=== PATIENT | female | born 1955 | race Caucasian/White ===

== ENCOUNTER → 2017-05-11 | Outpatient (CLI) | payer BC ==
--- NOTE | 2017-05-11 11:06 | XR ---
Left foot HISTORY: Pain and swelling, trauma 3 views of the left foot There is a plantar calcaneal spur. Bone mineralization, joint spaces and alignment are maintained. De generative change is present at the first metatarsophalangeal joint. impression: No acute fracture or dislocation is evident
== END | disposition home or self-care (01) ==
LOC: RADXRYALE 10:16
PROVIDERS: ATTEND Internal Medicine
DX: M79.672 Pain in left foot (principal)

== ENCOUNTER → 2019-05-12 | Outpatient (CLI) | payer BC ==
--- NOTE | 2019-05-12 13:36 | XR ---
EXAMINATION TYPE: XR knee limited bilateral DATE OF EXAM: 05/12/2019 CLINICAL HISTORY: Bilateral knee pain TECHNIQUE: Frontal and lateral views of the bilateral knees were obtained. COMPARISON: None. FINDINGS: There is no acute fracture/dislocation evident in either knee. There is very minimal media l compartment joint space narrowing bilaterally with very small tricompartmental osteophytes. No siza ble suprapatellar joint effusion of either knee The tri-compartment joint spaces appear aligned. The overlying soft tissue appears unremarkable. IMPRESSION: There is no acute fracture or dislocation in either knee. Mild tricompartmental arthrosi s.
== END | disposition home or self-care (01) ==
LOC: RADXRYALE 12:59
PROVIDERS: ATTEND Internal Medicine
DX: M17.0 Bilateral primary osteoarthritis of knee (principal)

== ENCOUNTER 2020-06-21 14:42 | Emergency (ER) | payer BC ==
[2020-06-21] MEDS ORDERED: ONDANSETRON 4 MG/2 ML VIAL IVP STA (15:31)
[2020-06-21] MEDS ORDERED: SODIUM CHLORIDE 0.9% 1,000 ML IV STA (15:31)
--- NOTE | 2020-06-21 15:43 | ED ---
General Adult HPI - General Chief complaint: Abdominal Pain Stated complaint: NVD Time Seen by Provider: 06/21/20 15:10 Source: patient Mode of arrival: ambulatory Limitations: no limitations - History of Present Illness Initial comments: Patient is a 64-year-old female past nuchal history of asthma, coronary artery disease, COPD presents emergency department with 2 days' worth of nausea, vomiting diarrhea. States that her symptoms started after she ate some pizza at her daughter's house. Denies any sick contacts with similar symptoms. She has been able to drink water however, she cannot hold down any food. Admits to chills without any recorded fevers as her thermometer is broken. Admits epigastric abdominal pain. No chest pain or shortness of breath. Denies cough. Did not take any medications for her symptoms. Decreased frequency of urination. Denies dysuria, hematuria or difficulty voiding. Denies diarrhea, constipation, melenic stools or hematochezia. - Related Data Home Medications Medication Instructions Recorded Confirmed ALPRAZolam [Xanax] 1 mg PO BID PRN 06/21/20 06/21/20 Albuterol Sulfate [Ventolin HFA] 2 puff INHALATION RT-Q6H PRN 06/21/20 06/21/20 Atorvastatin [Lipitor] 40 mg PO DAILY 06/21/20 06/21/20 Budesonide/Formoterol Fumarate 2 puff INHALATION RT-BID PRN 06/21/20 06/21/20 [Symbicort 160-4.5 Mcg Inhaler] Cyclobenzaprine [Flexeril] 10 mg PO TID PRN 06/21/20 06/21/20 Diltiazem HCl [Diltiazem HCl 24Hr 180 mg PO BID 06/21/20 06/21/20 ER (CD)] Lisinopril-Hctz 10-12.5 mg 1 tab PO DAILY 06/21/20 06/21/20 [Zestoretic 10-12.5] Omeprazole 20 mg PO DAILY PRN 06/21/20 06/21/20 Previous Rx's Medication Instructions Recorded Metoclopramide [Reglan] 10 mg PO TID PRN #15 tab 06/21/20 Allergies Allergy/AdvReac Type Severity Reaction Status Date / Time codeine Allergy Nausea & Verified 06/21/20 16:03 Vomiting Review of Systems ROS Statement: Those systems with pertinent positive or pertinent negative responses have been documented in the HPI. ROS Other: All systems not noted in ROS Statement are negative. Past Medical History Past Medical History: Asthma, Coronary Artery Disease (CAD), COPD History of Any Multi-Drug Resistant Organisms: None Reported Past Surgical History: Heart Catheterization, Hysterectomy Past Psychological History: No Psychological Hx Reported Smoking Status: Never smoker Past Alcohol Use History: None Reported Past Drug Use History: Marijuana General Exam Limitations: no limitations Course Vital Signs 06/21/20 06/21/20 15:09 18:12 Temperature 100.3 F H 98.3 F Pulse Rate 71 69 Respiratory 20 16 Rate Blood Pressure 166/76 134/67 O2 Sat by Pulse 96 97 Oximetry EKG Findings - EKG Comments: EKG Findings:: EKG demonstrates a normal sinus rhythm with a ventricular rate of 62. WA interval 148. QRS 100. QTC of 472. There is an incomplete right bundle branch block. No acute ST segment elevations or depressions Medical Decision Making - Medical Decision Making Upon arrival the patient is placed into room 18. A thorough history and physical exam was performed. Patient is placed on continuous pulse ox and cardiac monitoring. PIV is established. 12-lead EKG was performed. Laboratory studies were conducted. White count mildly elevated at 12.5. Urinalysis shows 1+ ketones with small blood and 17 red blood cells. Because of the patient's reported abdominal pain CT was performed which demonstrates no acute abdominal pelvic findings. Indeterminant right and left adrenal nodules. Nonobstructing once a meter right renal nephrolithiasis. The patient was given a dose of Zofran without improvement in her symptoms. She was also given a l iter bolus of normal saline. Upon reevaluation the patient continues to remain nauseated and therefore was given a dose of Benadryl and Reglan. Patient remained to the emergency room for 4 hours. She is evaluated and states she feels much improved at this time. Patient would like to go home. She will be given a Zofran starter pack and I will write the patient prescription for Reglan which would pharmacy. She is instructed to use one or the other for her nausea. Patient is swabbed for Covid and is instructed to quarantine until her symptoms improve and her results come back negative. Patient understood this. She has any new or worsening symptoms she should return to the emergency room. Questions were after the patient was discharged home in stable condition - Lab Data Result diagrams: 06/21/20 15:59 06/21/20 15:59 Lab Results 06/21/20 06/21/20 06/21/20 Range/Units 15:59 15:59 15:59 WBC 12.5 H (3.8-10.6) k/uL RBC 5.05 (3.80-5.40) m/uL Hgb 15.3 (11.4-16.0) gm/dL Hct 45.4 (34.0-46.0) % MCV 89.8 (80.0-100.0) fL MCH 30.3 (25.0-35.0) pg MCHC 33.7 (31.0-37.0) g/dL RDW 14.0 (11.5-15.5) % Plt Count 398 (150-450) k/uL Neutrophils % 72 % Lymphocytes % 21 % Monocytes % 5 % Eosinophils % 1 % Basophils % 1 % Neutrophils # 9.0 H (1.3-7.7) k/uL Lymphocytes # 2.7 (1.0-4.8) k/uL Monocytes # 0.6 (0-1.0) k/uL Eosinophils # 0.1 (0-0.7) k/uL Basophils # 0.1 (0-0.2) k/uL PT 10.1 (9.0-12.0) sec INR 1.0 (<1.2) APTT 24.6 (22.0-30.0) sec Sodium 139 (137-145) mmol/L Potassium 3.8 (3.5-5.1) mmol/L Chloride 109 H (98-107) mmol/L Carbon Dioxide 20 L (22-30) mmol/L Anion Gap 10 mmol/L BUN 12 (7-17) mg/dL Creatinine 0.58 (0.52-1.04) mg/dL Est GFR (CKD-EPI)AfAm >90 (>60 ml/min/1.73 sqM) Est GFR (CKD-EPI)NonAf >90 (>60 ml/min/1.73 sqM) Glucose 112 H (74-99) mg/dL Plasma Lactic Acid [place] (0.7-2.0) mmol/L Calcium 9.8 (8.4-10.2) mg/dL Total Bilirubin 0.8 (0.2-1.3) mg/dL AST 24 (14-36) U/L ALT 18 (4-34) U/L Alkaline Phosphatase 94 (38-126) U/L Total Protein 7.7 (6.3-8.2) g/dL Albumin 4.7 (3.5-5.0) g/dL Lipase 81 (23-300) U/L Urine Color Urine Appearance (Clear) Urine pH (5.0-8.0) Ur Specific [place] (1.001-1.035) Urine Protein (Negative) Urine Glucose (UA) (Negative) Urine Ketones (Negative) Urine Blood (Negative) Urine Nitrite (Negative) Urine Bilirubin (Negative) Urine Urobilinogen (<2.0) mg/dL Ur Leukocyte Esterase (Negative) Urine RBC (0-5) /hpf Urine WBC (0-5) /hpf Ur Squamous Epith Cells (0-4) /hpf Hyaline Casts (0-2) /lpf Urine Mucus (None) /hpf 06/21/20 06/21/20 Range/Units 15:59 17:15 WBC (3.8-10.6) k/uL RBC (3.80-5.40) m/uL Hgb (11.4-16.0) gm/dL Hct (34.0-46.0) % MCV (80.0-100.0) fL MCH (25.0-35.0) pg MCHC (31.0-37.0) g/dL RDW (11.5-15.5) % Plt Count (150-450) k/uL Neutrophils % % Lymphocytes % % Monocytes % % Eosinophils % % Basophils % % Neutrophils # (1.3-7.7) k/uL Lymphocytes # (1.0-4.8) k/uL Monocytes # (0-1.0) k/uL Eosinophils # (0-0.7) k/uL Basophils # (0-0.2) k/uL PT (9.0-12.0) sec INR (<1.2) APTT (22.0-30.0) sec Sodium (137-145) mmol/L Potassium (3.5-5.1) mmol/L Chloride (98-107) mmol/L Carbon Dioxide (22-30) mmol/L Anion Gap mmol/L BUN (7-17) mg/dL Creatinine (0.52-1.04) mg/dL Est GFR (CKD-EPI)AfAm (>60 ml/min/1.73 sqM) Est GFR (CKD-EPI)NonAf (>60 ml/min/1.73 sqM) Glucose (74-99) mg/dL Plasma Lactic Acid [place] 1.1 (0.7-2.0) mmol/L Calcium (8.4-10.2) mg/dL Total Bilirubin (0.2-1.3) mg/dL AST (14-36) U/L ALT (4-34) U/L Alkaline Phosphatase (38-126) U/L Total Protein (6.3-8.2) g/dL Albumin (3.5-5.0) g/dL Lipase (23-300) U/L Urine Color Light Yellow Urine Appearance Clear (Clear) Urine pH 7.5 (5.0-8.0) Ur Specific [place] >1.050 H (1.001-1.035) Urine Protein Trace H (Negative) Urine Glucose (UA) Negative (Negative) Urine Ketones 1+ H (Negative) Urine Blood Small H (Negative) Urine Nitrite Negative (Negative) Urine Bilirubin Negative (Negative) Urine Urobilinogen <2.0 (<2.0) mg/dL Ur Leukocyte Esterase Negative (Negative) Urine RBC 17 H (0-5) /hpf Urine WBC 2 (0-5) /hpf Ur Squamous Epith Cells 4 (0-4) /hpf Hyaline Casts 1 (0-2) /lpf Urine Mucus Rare H (None) /hpf Disposition Clinical Impression: Nausea and vomiting Disposition: HOME SELF-CARE Condition: Stable Instructions (If sedation given, give patient instructions): Acute Nausea and Vomiting (ED) Additional Instructions: Please follow-up with primary care doctor in 2-4 days. Take the Zofran or Reglan as needed for nausea (whichever works better for you). Return to the emergency department new or worsening symptoms Prescriptions: Metoclopramide [Reglan] 10 mg PO TID PRN #15 tab PRN Reason: Nausea Is patient prescribed a controlled substance at d/c from ED?: No Referrals: Pushpa Staples MD [Primary Care Provider] - 1-2 days Time of Disposition: 18:40
[2020-06-21 16:18] LABS: Basophils # (A) 0.1 k/uL (0-0.2); Basophils % (A) 1 %; Eosinophils # (A) 0.1 k/uL (0-0.7); Eosinophils % (A) 1 %; HCT 45.4 % (34.0-46.0); HGB 15.3 gm/dL (11.4-16.0); Lymphocytes # (A) 2.7 k/uL (1.0-4.8); Lymphocytes % (A) 21 %; MCH 30.3 pg (25.0-35.0); MCHC 33.7 g/dL (31.0-37.0); MCV 89.8 fL (80.0-100.0); Mean Platelet Volume 7.3; Monocytes # (A) 0.6 k/uL (0-1.0); Monocytes % (A) 5 %; Neutrophils % (A) 72 %; Platelet Count 398 k/uL (150-450); RBC 5.05 m/uL (3.80-5.40); WBC 12.5 k/uL (3.8-10.6)
[2020-06-21 16:25] LABS: ALT 18 U/L (4-34); AST 24 U/L (14-36); African American GFR (CKD) >90 (>60 ml/min/1.73 sqM); Albumin 4.7 g/dL (3.5-5.0); Alkaline Phosphatase 94 U/L (38-126); Anion Gap 10 mmol/L; Blood Urea Nitrogen 12 mg/dL (7-17); Calcium 9.8 mg/dL (8.4-10.2); Carbon Dioxide 20 mmol/L (22-30); Chloride 109 mmol/L (98-107); Glucose 112 mg/dL (74-99); Non-African American GFR(CKD) >90 (>60 ml/min/1.73 sqM); Potassium 3.8 mmol/L (3.5-5.1); Sodium 139 mmol/L (137-145); Total Bilirubin 0.8 mg/dL (0.2-1.3); Total Protein 7.7 g/dL (6.3-8.2)
[2020-06-21 16:26] LABS: Partial Thromboplastin Time 24.6 sec (22.0-30.0); Prothrombin Time 10.1 sec (9.0-12.0)
[2020-06-21] MEDS ORDERED: METOCLOPRAMIDE 5 MG/ML 2 ML VIAL IVP STA (16:28)
[2020-06-21] MEDS ORDERED: diphenhydrAMINE 50 MG/ML 1 ML VIAL IVP STA (16:28)
--- NOTE | 2020-06-21 16:47 | CT ---
EXAMINATION TYPE: CT abdomen pelvis w con DATE OF EXAM: 06/21/2020 COMPARISON: None HISTORY: Upper Abdominal pain with N/V and fever. CT DLP: 1186.3 mGycm Automated exposure control for dose reduction was used. TECHNIQUE: Helical acquisition of images was performed from the lung bases through the pelvis. CONTRAST: Performed without Oral Contrast and with IV Contrast, patient injected with 100 mL of Isovue 300. FINDINGS: LUNG BASES: Normal. LIVER: Normal. BILIARY SYSTEM: Normal. PANCREAS: Normal. SPLEEN: Normal. ADRENALS: Right adrenal 1.7 x 2.2 cm nodule. Left adrenal gland normal. KIDNEYS: 1.0 x 0.9 cm nonobstructing right renal lower pole calculus. Left renal 2.2 x 2.0 cm hypoden se lesion is borderline for simple fluid, with Hounsfield units of 32. No hydronephrosis or hydrouret er bilaterally. BOWEL: Small hiatal hernia. No evidence of bowel obstruction or thickening. Colonic diverticulosis. No acute diverticulitis. 2.0 cm lipoma of the cecum. PERITONEUM: No pneumoperitoneum. No free fluid. LYMPH NODES: No lymphadenopathy. PELVIS: Normal urinary bladder. Status post post hysterectomy. VASCULATURE: No abdominal aortic aneurysm. MUSCULOSKELETAL: Degenerative changes of the spine. IMPRESSION: 1. No acute abdominopelvic findings to explain patient's symptoms. 2. Indeterminate right adrenal 2.2 cm nodule. Recommend follow-up CT or MRI with adrenal mass protoc ol. 3. Left renal 2.2 cm hypodense lesion is borderline for fluid density, and may represent cyst. Atten tion on follow-up to adrenal imaging. 4. Nonobstructing 1.0 cm right renal nephrolithiasis. 5. Hiatal hernia.
[2020-06-21 17:45] LABS: Appearance,Urine Clear (Clear); Bilirubin,Urine Negative (Negative); Blood,Urine Small (Negative); Color,Urine Light Yellow; Glucose,Urine (UA) Negative (Negative); Hyaline Casts,Urine 1 /lpf (0-2); Ketones,Urine 1+ (Negative); Leukocyte Esterase,Urine Negative (Negative); Mucus,Urine Rare /hpf; Nitrite,Urine Negative (Negative); PH, Urine 7.5 (5.0-8.0); Protein,Urine Trace (Negative); RBC,Urine 17 /hpf (0-5); Squamous Epithelial Cell,Urine 4 /hpf (0-4); Urobilinogen,Urine <2.0 mg/dL (<2.0); WBC,Urine 2 /hpf (0-5)
[2020-06-21 18:06] LABS: Specific Gravity,Urine >1.050 (1.001-1.035)
[2020-06-21 18:13] VITALS: BP 134/67; PULSE 69; RESP 16; TEMP 98.3
[2020-06-21] MEDS ORDERED: ONDANSETRON 4 MG ODT STARTER PACK 2 TAB BTL PO STA (18:41)
== END 2020-06-21 18:55 | disposition home or self-care (01) ==
LOC: EC 14:42
DX: N20.0 Calculus of kidney (principal); D72.829 Elevated white blood cell count, unspecified; J44.9 Chronic obstructive pulmonary disease, unspecified; I25.10 Atherosclerotic heart disease of native coronary artery without angina pectoris; Z79.899 Other long term (current) drug therapy; Z88.5 Allergy status to narcotic agent; Z90.710 Acquired absence of both cervix and uterus; Z20.828 Contact with and (suspected) exposure to other viral communicable diseases
CPT/HCPCS: 36415; 93005; 80053; 83605; 83690; 85025; 85610; 85730; 81001; 74177; 99284; 96374; 96375 ×2; 96361; U0003; J1200; J2765; J2405; S0119; Q9967

== ENCOUNTER → 2020-07-11 | Outpatient (CLI) | payer BC ==
--- NOTE | 2020-07-11 16:13 | CT ---
EXAMINATION TYPE: CT adrenal glands wo/w con DATE OF EXAM: 07/11/2020 COMPARISON: 06/21/2020 HISTORY: 64-year-old female adrenal mass/pain LUQ TECHNIQUE: Contiguous axial scanning of the abdomen performed without and with IV Contrast, patient i njected with 100 mL of Isovue 300. Appropriate delayed images were also obtained per adrenal mass pro tocol CT. Coronal/sagittal reconstructions performed. CT DLP: 1466.4 mGycm Automated exposure control for dose reduction was used. FINDINGS: Heart incompletely visualized. The strandy atelectasis at the lung bases. No pleural effusion. Small hiatal hernia. Liver borderline in size at 17.4 cm. No focal lesion seen. There is lower density of the liver on por janet venous phase compatible with hepatic steatosis. No biliary ductal dilatation. Portal venous syste m is patent. Gallbladder, left adrenal gland, spleen, and pancreas appear within normal limits. There is a 1 cm nonobstructive right lower pole renal calculus. Symmetric uptake and excretion of con trast from both kidneys. A 2.3 cm anterior lower pole left renal hypodensity shows intermediate attenuation of 21 Hounsfield u nits. Postcontrast attenuation is 27 Hounsfield units. Findings compatible with a benign, minimally c omplicated cyst. Redemonstrated low-density mass of the right adrenal gland measuring 2.4 x 1.5 cm. On the noncontrast sequence, attenuation is -8 Hounsfield units compatible with a lipid rich adrenal adenoma. There are no dilated small bowel, free fluid, or free air. No mesenteric or retroperitoneal lymphadenopathy. Scattered mild atherosclerotic calcifications infrarenal abdominal aorta without aneurysm. Mild scattered stool. No pericolonic inflammatory change. Pelvis is not imaged. Bones: Facet arthropathy lower lumbar spine. Degenerative disc disease L5-S1. There is grade 1 aureliano listhesis L4-L5. IMPRESSION: 1. FINDINGS ARE COMPATIBLE WITH A BENIGN 2.4 CM LIPID RICH RIGHT ADRENAL ADENOMA. 2. A MINIMALLY COMPLICATED/DEBRIS-FILLED BENIGN 2.3 CM LEFT RENAL CYST. 3. MILD HEPATIC STEATOSIS AND BORDERLINE HEPATOMEGALY AT 17.4 CM. 4. SMALL HIATAL HERNIA AND 1 CM NONOBSTRUCTIVE RIGHT RENAL CALCULUS.
== END | disposition home or self-care (01) ==
LOC: RADCTMAIN 13:21
PROVIDERS: ATTEND Internal Medicine
DX: N28.1 Cyst of kidney, acquired (principal); N20.0 Calculus of kidney
CPT/HCPCS: 74170; Q9967

== ENCOUNTER → 2020-10-04 | Outpatient (CLI) | payer BC ==
--- NOTE | 2020-10-07 10:07 | MM ---
Reason for exam: screening (asymptomatic). Last mammogram was performed 8 years and 4 months ago. History: Patient is postmenopausal and has history of endometrial cancer at age 28. Physical Findings: A clinical breast exam by your physician is recommended on an annual basis and results should be correlated with mammographic findings. MG Screening Mammo w CAD Bilateral CC and MLO view(s) were taken. Prior study comparison: May 25, 2012, bilateral digital screening mammo w/CAD. November 05, 2009, bilateral digital screening mammogram. The breast tissue is heterogeneously dense. This may lower the sensitivity of mammography. There is chronic nodularity in the right breast. There is no discrete abnormality. No significant changes when compared with prior studies. ASSESSMENT: Benign, BI-RAD 2 RECOMMENDATION: Routine screening mammogram of both breasts in 1 year.
== END | disposition home or self-care (01) ==
LOC: RADMAMWWP 14:06
PROVIDERS: ATTEND Internal Medicine
DX: Z12.31 Encounter for screening mammogram for malignant neoplasm of breast (principal)
CPT/HCPCS: 77067

== ENCOUNTER → 2022-11-18 | Outpatient (CLI) | payer MEDICARE ==
--- NOTE | 2022-11-18 11:23 | MM ---
Reason for Exam: Additional evaluation requested from abnormal screening. Last screening mammogram was performed less than 1 month ago. Patient History: Menarche at age 12. First Full-Term at age 21. Hysterectomy at age 28. Postmenopausal. Endometrial cancer, age 28. Risk Values: [place] 5 year model risk: 1.6%. NCI Lifetime model risk: 5.9%. Prior Study Comparison: 05/25/2012 Bilateral Screening Mammogram, [facility]. 10/04/2020 Bilateral Screening Mammogram, [facility]. 11/13/2022 Bilateral MG screening mammo w CAD, [facility]. Tissue Density: Right: There are scattered fibroglandular densities. Findings: Analyzed By CAD. The far posterior 9-10 o'clock focal asymmetry is better seen on the additional views and appears to correspond to focal asymmetry that was present on the 2012 exam. Precautionary six-month follow-up is recommended. Overall Assessment: Probably benign, BI-RAD 3 Management: Diagnostic Mammogram of the right breast in 6 months. 1. Patient should continue monthly self breast exams. 2. A clinical breast exam by your physician is recommended on an annual basis. 3. This exam should not preclude additional follow-up of suspicious palpable abnormalities. Electronically signed and approved by: Judith Leal M.D. Radiologist
== END | disposition home or self-care (01) ==
LOC: RADMAMWWP 10:56
PROVIDERS: ATTEND Internal Medicine
DX: R92.8 Other abnormal and inconclusive findings on diagnostic imaging of breast (principal); N64.59 Other signs and symptoms in breast; Z78.0 Asymptomatic menopausal state
CPT/HCPCS: 77065

== ENCOUNTER 2023-06-29 05:45 | Day surgery (SDC) | payer MEDICARE ==
--- NOTE | 2023-06-28 16:49 | P.HPIHPCON ---
History of Present Illness H&P Date: 06/28/23 Chief Complaint: Right-sided renal stone This is a 67-year-old female with history of a 2.1 centimeters right-sided renal pelvis stone. She is status post stent insertion. She presents today for definitive stone management. Option of a right-sided PCNL was discussed with her. Aware of the risk which include but not limited to bleeding, infection, injury to nearby organs which include lung, liver and bowel. Risk of anesthesia was also discussed with her. She understood all the risk and agreed to proceed with right-sided PCNL Consent for Procedure: I have explained the operation/procedure to the patient, including the risks, benefits, side effects, alternative therapies (including not receiving the proposed treatment or service), the likelihood of the patient achieving his/her goals, and potential recuperation problems for the procedure/sedation/analgesia, as well as any blood products, if indicated. I also explained to the patient the risks, benefits and side effects of the alternatives, as well as the risks related to not receiving the proposed procedure, care, treatment, or services. Past Medical History Past Medical History: Asthma, Coronary Artery Disease (CAD), COPD History of Any Multi-Drug Resistant Organisms: None Reported Past Surgical History: Heart Catheterization, Hysterectomy Past Psychological History: No Psychological Hx Reported Smoking Status: Never smoker Past Alcohol Use History: None Reported Past Drug Use History: Marijuana Medications and Allergies Home Medications Medication Instructions Recorded Confirmed Type ALPRAZolam [Xanax] 1 mg PO BID PRN 06/21/20 06/21/20 History Albuterol Sulfate [Ventolin HFA] 2 puff INHALATION RT-Q6H PRN 06/21/20 06/21/20 History Atorvastatin [Lipitor] 40 mg PO DAILY 06/21/20 06/21/20 History Budesonide/Formoterol Fumarate 2 puff INHALATION RT-BID PRN 06/21/20 06/21/20 History [Symbicort 160-4.5 Mcg Inhaler] Cyclobenzaprine [Flexeril] 10 mg PO TID PRN 06/21/20 06/21/20 History Lisinopril-Hctz 10-12.5 mg 1 tab PO DAILY 06/21/20 06/21/20 History [Zestoretic 10-12.5] Metoclopramide [Reglan] 10 mg PO TID PRN #15 tab 10/16/20 Rx Omeprazole 20 mg PO DAILY PRN 06/21/20 06/21/20 History dilTIAZem HCL [Diltiazem HCl 24Hr 180 mg PO BID 06/21/20 06/21/20 History ER (CD)] Allergies Allergy/AdvReac Type Severity Reaction Status Date / Time codeine Allergy Nausea & Verified 06/21/20 16:03 Vomiting Surgical - Exam - General no distress, moderate pain - Eyes normal ocular movement, no pale - ENT normal nares, normal mucosa - Respiratory normal expansion, normal respiratory effort - Abdomen Abdomen: soft, non tender Assessment and Plan Assessment: OR for right-sided PCNL
[2023-06-29] MEDS ORDERED: LIDOCAINE 1% (10MG/ML) FOR IV START INTRADERMA PRN (05:50)
[2023-06-29] MEDS ORDERED: droPERidol 5 MG/2 ML VIAL IVP ONE (05:50)
[2023-06-29] MEDS ORDERED: ONDANSETRON 4 MG/2 ML VIAL IVP ONE (05:50)
[2023-06-29] MEDS ORDERED: DEXAMETHASONE SOD PHOSPHATE 4 MG/ML 1 ML VIAL IV ONE (05:50)
[2023-06-29] MEDS: LACTATED RINGERS 1,000 ML IV SCH (06:37)
[2023-06-29] MEDS ORDERED: MIDAZOLAM 2 MG/2 ML VIAL ONE (07:10)
[2023-06-29] MEDS ORDERED: ePHEDrine 50 MG/ML 1 ML VIAL ONE (07:10)
[2023-06-29] MEDS ORDERED: NEOSTIGMINE 1 MG/ML 10 ML VIAL ONE (07:10)
[2023-06-29] MEDS ORDERED: PHENYLEPHRINE-0.9% NACL SYG 1,000 MCG/10 ML SYRINGE ONE (07:10)
[2023-06-29] MEDS ORDERED: LIDOCAINE 4% LTA KIT (4 ML) TOPICAL ONE (07:10)
[2023-06-29] MEDS ORDERED: PROPOFOL 10 MG/ML 20 ML VIAL IV ONE (07:10)
[2023-06-29] MEDS ORDERED: GLYCOPYRROLATE 0.2 MG/ML 2 ML VIAL ONE (07:10)
[2023-06-29] MEDS ORDERED: SUCCINYLCHOLINE CHLORIDE 200 MG/10 ML VIAL IV ONE (07:10)
[2023-06-29] MEDS ORDERED: fentaNYL (PF) 50 MCG/ML 2 ML AMP ONE (07:10)
[2023-06-29] MEDS ORDERED: ROCURONIUM 10 MG/ML (5 ML VIAL) IV ONE (07:10)
[2023-06-29] MEDS ORDERED: LIDOCAINE 1% INJ 10MG/ML (20 ML MDV) ONE (07:10)
[2023-06-29] MEDS ORDERED: IOPAMIDOL-370 50ML BTL MISCELLANE ONE (07:15)
--- NOTE | 2023-06-29 08:31 | P.PCN ---
Date of Procedure: 06/29/23 Preoperative Diagnosis: Right renal stone, large Postoperative Diagnosis: Same Procedure(s) Performed: Percutaneous nephrostomy access, right Anesthesia: YOKOA Surgeon: Kirit Wilkinson Pathology: none sent Condition: stable Indications for Procedure: The patient has a 3 cm right renal pelvic stone. She comes for right percutaneous nephrostolithotomy by . I will perform percutaneous access for his surgical procedure Description of Procedure: The patient is in operating suite. She has previously had an occluding balloon catheter placed in the proximal ureter. After sterile prep and drape I ended the procedure. inject some air through the occluding balloon catheter to outline the collecting system. I choose a middle pole calyx. I passed a 21- gauge Chiba needle into the middle pole calyx. After accessing the calyx a pass a cope wire into the collecting system. It passes down the ureter. I then pass a 3-Ivorian dilating catheter into the middle pole calyx. I removed the cope wire and pass an 035 straight Lubriglide wire down the ureter. I removed the dilating catheter and pass a Kumpf catheter into the proximal ureter. I removed the Lubriglide wire and pass an 035 Super Stiff wire down the ureter. I removed the Kumpe catheter and pass the 8-10-Ivorian dilating catheters in the ureter. I removed the 8-Ivorian catheter and then pass a second wire down the ureter. I removed the 10-Ivorian catheter and then passed the dilating balloon into the collecting system and dilated the tract to 30-Ivorian and introduced the working sheath. Dr. Pinto will proceed with his percutaneous nephrostolithotomy
[2023-06-29] MEDS ORDERED: LACTATED RINGERS 1,000 ML IV ONE (08:45)
--- NOTE | 2023-06-29 08:56 | XR ---
EXAMINATION TYPE: XR KUB DATE OF EXAM: 06/29/2023 6:16 AM CLINICAL INDICATION:Female, 67 years old with history of KIDNEY STONE; [facility] COMPARISON: 06/21/2020 TECHNIQUE: One radiographic view of the abdomen was obtained. FINDINGS: Right ureteral stent with persistent right renal pelvis 32 x 21 mm calcification. Multilevel degeneration changes of the spine. Nonspecific bowel gas pattern. No evidence fracture. IMPRESSION: Ureteral stent in appropriate position with renal sinus calcification remaining present.
[2023-06-29] MEDS ORDERED: ALBUTEROL NEBULIZED 2.5 MG/3 ML INHALATION PRN (09:24)
[2023-06-29] MEDS ORDERED: ALPRAZolam 1 MG TAB PO PRN (09:24)
[2023-06-29] MEDS ORDERED: CYCLOBENZAPRINE 10 MG TAB PO PRN (09:24)
[2023-06-29] MEDS ORDERED: SYMBICORT 160-4.5 MCG INHALER INHALATION PRN (09:24)
[2023-06-29] MEDS ORDERED: METOCLOPRAMIDE 10 MG TAB PO PRN (09:24)
[2023-06-29] MEDS ORDERED: PANTOPRAZOLE 40 MG TABLET PO PRN (09:24)
[2023-06-29] MEDS ORDERED: MAG HYDROX/AL HYDROX/SIMETH 30 ML CUP PO PRN (09:25)
[2023-06-29] MEDS ORDERED: ONDANSETRON 4 MG/2 ML VIAL IVP PRN (09:25)
[2023-06-29] MEDS ORDERED: ACETAMINOPHEN TAB 325 MG TAB PO PRN (09:25)
--- NOTE | 2023-06-29 09:35 | P.OP ---
Date of Procedure: 06/29/23 Preoperative Diagnosis: Right renal stone Postoperative Diagnosis: Same Procedure(s) Performed: Right-sided PCNL, cystoscopy, right ureteral catheterization, stent removal Implants: None Anesthesia: YOKOA Surgeon: Amadeo Pinto Estimated Blood Loss (ml): 150 Pathology: other (right renal stone) Condition: stable Disposition: PACU Indications for Procedure: This is a 67-year-old female with history of a 2.1 centimeters right-sided renal pelvis stone. She is status post stent insertion. She presents today for definitive stone management. Option of a right-sided PCNL was discussed with her. Aware of the risk which include but not limited to bleeding, infection, injury to nearby organs which include lung, liver and bowel. Risk of anesthesia was also discussed with her. She understood all the risk and agreed to proceed with right-sided PCNL Operative Findings: Large right-sided renal pelvis stone Description of Procedure: Patient brought to the operating room, general anesthesia was induced. Next she was prepped and draped on the stretcher. Next a cystoscope fitted with 21- Dutch sheath was inserted per urethra, the right stent was visualized and removed to the meatus. Next a sensor wire was advanced through the stent and the stent was removed with the wire in place. Next a 10-Dutch balloon occluding catheter was passed over the wire and into the kidney. The wire was removed. Next a 16-Dutch Angel was placed and the Angel was secured to the balloon occluding catheter. At this time the patient was placed in prone position, all pressure points were padded. The right flank was prepped and draped in sterile fashion. Next access was obtained by Dr. Wilkinson, please see his procedure for that part of the surgery. Once 2 wires were down the ureter at this point a 30-Dutch balloon was passed over the wire, the tract was dilated. Next a 30-Dutch access sheath was passed over the wire and into the kidney. Next a rigid nephroscope was inserted through the access sheath, a large stone was encountered in the renal pelvis. Using the ultrasound lithotripter the stone was fragmented, stone fragments were removed using the grasper, repeat renoscopy showed no additional sizable fragments. At this time I switched to a flexible cystoscope and a complete renoscopy was performed which showed no evidence of any sizable fragments or injury to the kidney. On fluoroscopy there is no radiopaque densities. Antegrade nephrostogram was performed which showed contrast going down the ureter no evidence of filling defect or contrast extravasation. At this time the cystoscope was withdrawn and a 10-Dutch nephrostomy tube was placed over the wire and into the renal pelvis. Antegrade nephroscopy was performed to confirm the location. At this time the access sheath was removed and the nephrostomy tube was secured to the skin using 2-0 silk. Sterile dressing was applied on the nephrostomy . The patient was awakened from anesthesia and taken to recovery in stable condition
--- NOTE | 2023-06-29 09:46 | FL ---
Intraoperative/procedural fluoroscopic services were provided for right percutaneous nephrostomy. Tot al fluoroscopy time is 283.1 seconds with a total of 7 submitted images to PACS. Total DAP 1.11 mGym2 . Please see the operative note for further details.
[2023-06-29] MEDS: fentaNYL (PF) 50 MCG/ML 2 ML AMP IV PRN ×2 (09:55→10:03)
[2023-06-29] MEDS: MORPHINE SULFATE 4 MG/ML SYRINGE IVP PRN ×3 (11:11→21:15)
[2023-06-29] MEDS: KETOROLAC 15 MG/ML 1 ML VIAL IVP SCH ×2 (12:09→19:06)
[2023-06-29] MEDS: DEXTROSE 5%-0.45% NACL 1,000 ML IV SCH ×2 (13:08→21:15)
[2023-06-29] MEDS: HEPARIN SODIUM,PORCINE 5,000 UNIT/ML 1 ML VIAL SQ SCH (15:27)
[2023-06-30] MEDS: HEPARIN SODIUM,PORCINE 5,000 UNIT/ML 1 ML VIAL SQ SCH ×2 (01:17→08:42)
[2023-06-30] MEDS: KETOROLAC 15 MG/ML 1 ML VIAL IVP SCH ×3 (01:18→11:30)
[2023-06-30] MEDS: LACTATED RINGERS 1,000 ML IV SCH (04:33)
[2023-06-30] MEDS: DEXTROSE 5%-0.45% NACL 1,000 ML IV SCH (06:04)
[2023-06-30] MEDS ORDERED: ATORVASTATIN 40 MG TAB PO SCH (09:00)
[2023-06-30] MEDS ORDERED: DILTIAZEM CD 180 MG CAP.ER.24H PO SCH (09:00)
[2023-06-30] MEDS ORDERED: LISINOPRIL-HCTZ 10-12.5 MG 1 EACH TAB PO SCH (09:00)
[2023-06-30 09:02] VITALS: BP 150/79; PULSE 84; RESP 16; TEMP 98.6
--- NOTE | 2023-06-30 09:13 | P.DS ---
Providers Attending physician: Amadeo Pinto MD Primary care physician: [facility] Course: 67 yo female who underwent a right pcnll yesterday by Dr Pinto. Her post op course was uneventful Her pain is minimal Her urine is clearing. She will d/cd hoem and fu with Dr pinto for n tube removal Her condition is good post op instructions have been given Plan - Discharge Summary New Discharge Prescriptions: No Action Lisinopril-Hctz 10-12.5 mg [Zestoretic 10-12.5] 1 tab PO DAILY dilTIAZem HCL [Diltiazem HCl 24Hr ER (CD)] 180 mg PO DAILY Atorvastatin [Lipitor] 40 mg PO DAILY Cyclobenzaprine [Flexeril] 10 mg PO TID PRN PRN Reason: Muscle Spasm Albuterol Sulfate [Ventolin HFA] 2 puff INHALATION RT-Q6H PRN PRN Reason: Shortness Of Breath Budesonide/Formoterol Fumarate [Symbicort 160-4.5 Mcg Inhaler] 2 puff INHALATION RT-BID PRN PRN Reason: Shortness Of Breath ALPRAZolam [Xanax] 1 mg PO BID PRN PRN Reason: Anxiety Omeprazole 20 mg PO DAILY PRN PRN Reason: Gi Upset Metoclopramide [Reglan] 10 mg PO TID PRN #15 tab PRN Reason: Nausea Discharge Medication List ALPRAZolam [Xanax] 1 mg PO BID PRN 06/21/20 [History] Albuterol Sulfate [Ventolin HFA] 2 puff INHALATION RT-Q6H PRN 06/21/20 [History] Atorvastatin [Lipitor] 40 mg PO DAILY 06/21/20 [History] Budesonide/Formoterol Fumarate [Symbicort 160-4.5 Mcg Inhaler] 2 puff INHALATION RT-BID PRN 06/21/20 [History] Cyclobenzaprine [Flexeril] 10 mg PO TID PRN 06/21/20 [History] Lisinopril-Hctz 10-12.5 mg [Zestoretic 10-12.5] 1 tab PO DAILY 06/21/20 [History] Metoclopramide [Reglan] 10 mg PO TID PRN #15 tab 06/21/20 [Rx] Omeprazole 20 mg PO DAILY PRN 06/21/20 [History] dilTIAZem HCL [Diltiazem HCl 24Hr ER (CD)] 180 mg PO DAILY 06/21/20 [History] Follow up Appointment(s)/Referral(s): Amadeo Pinto MD [STAFF PHYSICIAN] - 1 Week Discharge Disposition: HOME SELF-CARE
== END 2023-06-30 12:42 | disposition home or self-care (01) ==
LOC: OR 05:45 → 5NMEDONC 09:19 → OR 06-30 12:42
PROVIDERS: ATTEND Urology
DX: N20.0 Calculus of kidney (principal); J44.9 Chronic obstructive pulmonary disease, unspecified; I25.10 Atherosclerotic heart disease of native coronary artery without angina pectoris; Z90.710 Acquired absence of both cervix and uterus; F12.90 Cannabis use, unspecified, uncomplicated; Z79.51 Long term (current) use of inhaled steroids; Z88.5 Allergy status to narcotic agent; Z79.899 Other long term (current) drug therapy
CPT/HCPCS: 94640; 82365; 50432; 74018; 50081; C1769 ×2; C2628; C1894; J2270; J1644 ×2; J1100; J0690; J2405 ×2; J3010; J1885 ×2; Q9967

== ENCOUNTER → 2023-10-04 | Outpatient (CLI) | payer MEDICARE ==
[2023-10-04 10:31] LABS: African American GFR (CKD) >90 (>60 ml/min/1.73 sqM); Blood Urea Nitrogen 14 mg/dL (7-17); Non-African American GFR(CKD) >90 (>60 ml/min/1.73 sqM)
--- NOTE | 2023-10-04 11:40 | CT ---
EXAMINATION TYPE: CT adrenal glands wo/w con CT DLP: 1140 mGycm, Automated exposure control for dose reduction was used. DATE OF EXAM: 10/04/2023 11:27 AM COMPARISON: CT adrenal gland 07/11/2020 CLINICAL INDICATION:Female, 67 years old with history of D35.00 BENIGN NEOPLASM OF UNSPECIFIED ADRENA L GLAN; Benign neoplasm of unspecified adrenal gland, adrenal nodule. TECHNIQUE: CT adrenal gland before and after the uneventful administration of 100 cc of Isovue-300 in travenously. Oral contrast was administered. Coronal and sagittal reformats were performed. FINDINGS: LOWER CHEST: Unremarkable ABDOMEN LIVER: Unremarkable GALLBLADDER AND BILE DUCTS: Unremarkable. PANCREAS: Unremarkable. SPLEEN: Unremarkable. ADRENAL GLANDS: Increase in size of right adrenal gland 3.1 cm nodule, previously 2.3 cm. This demons trates Hounsfield unit of -15. No contrast enhancement on delayed imaging. KIDNEYS AND URETERS: No evidence of hydronephrosis. Approximately 4 nonobstructive right renal calcul i with largest measuring up to 3 mm. Left renal cyst measuring 3.4 cm which is increased in size from prior exam. STOMACH AND BOWEL: Small hiatal hernia, duodenum is unremarkable. Enteric contrast reaches the distal small bowel. Scattered colonic diverticulosis. No evidence of bowel obstruction. PERITONEUM: No evidence of pneumoperitoneum or free fluid. VASCULATURE: Mild atherosclerotic calcifications are present throughout the abdominal aorta and its b ranches. No evidence of aortic aneurysm. MUSCULOSKELETAL: No acute osseous abnormalities LYMPH NODES: No gross evidence for lymphadenopathy. SOFT TISSUE/ABDOMINAL WALL: Unremarkable IMPRESSION: 1. Increase in size of 3.1 cm benign lipid rich right adrenal adenoma. Previously 2.3 cm. No enhance ment demonstrated. 2. Nonobstructive right renal calculi.
== END | disposition home or self-care (01) ==
LOC: RADCTMAIN 09:39
PROVIDERS: ATTEND Urology
DX: D35.01 Benign neoplasm of right adrenal gland (principal); N20.0 Calculus of kidney
CPT/HCPCS: 82565; 84520; 74170; Q9967

== ENCOUNTER → 2024-06-27 | Outpatient (CLI) | payer MEDICARE ==
[2024-06-27 12:33] LABS: African American GFR (CKD) >90 (>60 ml/min/1.73 sqM); Blood Urea Nitrogen 15 mg/dL (7-17); Non-African American GFR(CKD) >90 (>60 ml/min/1.73 sqM)
--- NOTE | 2024-06-27 14:53 | CT ---
EXAMINATION TYPE: CT adrenal glands wo/w con CT DLP: 1530 mGycm, Automated exposure control for dose reduction was used. DATE OF EXAM: 06/27/2024 1:09 PM COMPARISON: CT adrenal 10/04/2023, 07/11/2020 CLINICAL INDICATION:Female, 68 years old with history of D35.00 ADRENAL; f/u adrenal mass/ has prior TECHNIQUE: Multiphase CT of the abdomen before and after the uneventful administration of 100 mL of Isovue-370 intravenously. Oral contrast was demonstrated. Coronal and sagittal reformats were perform ed. FINDINGS: LOWER CHEST: Unremarkable ABDOMEN LIVER: Unremarkable GALLBLADDER AND BILE DUCTS: Unremarkable. PANCREAS: Unremarkable. SPLEEN: Unremarkable. ADRENAL GLANDS: Stable right adrenal gland hypodense nodule measuring 3.0 cm. Demonstrates -18 Hounsf ield units on noncontrast imaging. 10 Hounsfield units on arterial phase. -1 Hounsfield units on monique yed imaging. KIDNEYS AND URETERS: No evidence of hydronephrosis. Nonobstructive right renal calculi measuring up t o 4 mm. Additional punctate nodule at the left renal calculus. Stable left renal cyst measuring up to 3.6 cm. Contrast is demonstrated within both collecting systems on the delayed phase. STOMACH AND BOWEL: Small hiatal hernia, duodenum is unremarkable. Enteric contrast reaches the distal small bowel. Scattered colonic diverticulosis. No evidence of bowel obstruction. PERITONEUM: No evidence of pneumoperitoneum or free fluid. VASCULATURE: Mild atherosclerotic calcifications are present throughout the abdominal aorta and its b ranches. No evidence of aortic aneurysm. MUSCULOSKELETAL: No acute osseous abnormalities LYMPH NODES: No evidence for lymphadenopathy. SOFT TISSUE/ABDOMINAL WALL: Unremarkable IMPRESSION: 1. Stable 3.0 cm right adrenal gland lipid rich adenoma from most recent CT 10/04/2023. 2. Nonobstructive bilateral renal calculi. [facility], , 06/27/2024 2:51 PM
== END | disposition home or self-care (01) ==
LOC: RADCTMAIN 11:44
PROVIDERS: ATTEND Urology
DX: D35.00 Benign neoplasm of unspecified adrenal gland
CPT/HCPCS: 36415; 74170; 82565; 84520

== ENCOUNTER 2025-01-08 16:43 | Emergency (ER) | payer MEDICARE ==
[2025-01-08 16:47] VITALS: TEMP 98
--- NOTE | 2025-01-08 17:26 | ED ---
SOB HPI - General Chief Complaint: Shortness of Breath Stated Complaint: MALISSA Time Seen by Provider: 01/08/25 16:48 Source: patient, RN notes reviewed Mode of arrival: wheelchair Limitations: no limitations - History of Present Illness Initial Comments: This is a 69-year-old female who presents to the emergency department for shortness of breath. States that it started yesterday. Denies any chest pain. She does have some coughing as well. Reports a history of asthma and states that it feels like an asthma attack. She did try using breathing treatments without any relief. She does also report sick contacts. Denies any fevers/chills. MD Complaint: shortness of breath, cough - Related Data Home Medications Medication Instructions Recorded Confirmed ALPRAZolam [Xanax] 1 mg PO BID PRN 06/21/20 06/29/23 Albuterol Sulfate [Ventolin HFA] 2 puff INHALATION RT-Q6H PRN 06/21/20 06/29/23 Atorvastatin [Lipitor] 40 mg PO DAILY 06/21/20 06/29/23 Budesonide/Formoterol Fumarate 2 puff INHALATION RT-BID PRN 06/21/20 06/29/23 [Symbicort 160-4.5 Mcg Inhaler] Cyclobenzaprine [Flexeril] 10 mg PO TID PRN 06/21/20 06/29/23 Lisinopril-Hctz 10-12.5 mg 1 tab PO DAILY 06/21/20 06/29/23 [Zestoretic 10-12.5] Omeprazole 20 mg PO DAILY PRN 06/21/20 06/29/23 dilTIAZem HCL [Diltiazem HCl 24Hr 180 mg PO DAILY 06/21/20 06/29/23 ER (CD)] Previous Rx's Medication Instructions Recorded Metoclopramide [Reglan] 10 mg PO TID PRN #15 tab 06/21/20 Benzonatate [Tessalon Perle] 200 mg PO TID PRN #20 capsule 01/08/25 Ondansetron Odt [Zofran Odt] 4 mg PO Q8HR PRN #15 tab 01/08/25 Oseltamivir [Tamiflu] 75 mg PO Q12HR 5 Days #10 cap 01/08/25 predniSONE 50 mg PO DAILY 5 Days #5 tab 01/08/25 Allergies Allergy/AdvReac Type Severity Reaction Status Date / Time codeine Allergy Nausea & Verified 01/08/25 16:47 Vomiting Review of Systems ROS Statement: Those systems with pertinent positive or pertinent negative responses have been documented in the HPI. ROS Other: All systems not noted in ROS Statement are negative. Past Medical History Past Medical History: Asthma, Coronary Artery Disease (CAD), COPD History of Any Multi-Drug Resistant Organisms: None Reported Past Surgical History: Heart Catheterization, Hysterectomy Past Psychological History: No Psychological Hx Reported Smoking Status: Never smoker Past Alcohol Use History: None Reported Past Drug Use History: Marijuana General Exam Limitations: no limitations General appearance: alert, in no apparent distress Head exam: Present: atraumatic, normocephalic, normal inspection Respiratory exam: Present: wheezes, decreased breath sounds, prolonged expiratory Cardiovascular Exam: Present: regular rate, normal rhythm Neurological exam: Present: alert, oriented X3, CN II-XII intact Psychiatric exam: Present: normal affect, normal mood Skin exam: Present: warm, dry, intact, normal color. Absent: rash Course Vital Signs 01/08/25 01/08/25 01/08/25 16:44 17:50 18:03 Temperature 98.0 F Pulse Rate 94 96 89 Respiratory 17 Rate Blood Pressure 189/75 O2 Sat by Pulse 96 Oximetry 01/08/25 01/08/25 01/08/25 18:06 18:23 20:09 Temperature Pulse Rate 83 88 Respiratory 36 H 24 18 Rate Blood Pressure 156/90 158/78 O2 Sat by Pulse 95 91 L Oximetry Medical Decision Making - Medical Decision Making This is a 69-year-old female who presents to the emergency department for shortness of breath. Was pt. sent in by a medical professional or institution? @ -No Did you speak to anyone other than the patient for history? @ -No Did you review nursing and triage notes? @ -Yes, and I agree, it is accurate with regards to the patient's symptoms. Were old charts reviewed? @ -No Differential Diagnosis? @ -Differential Dyspnea: Coronary syndrome, arrhythmia, tamponade, asthma, COPD, pulmonary embolism, pneumonia, pneumothorax, pulmonary effusion, anaphylaxis, diabetic ketoacidosis, flailed chest, pulmonary contusion, diaphragmatic rupture, anemia, neuromuscular, this is not meant to be an all-inclusive list. EKG interpreted by me (3pts min.)? @ -EKG interpreted by me demonstrating the following: Sinus rhythm. Ventricular rate 93 bpm, CA interval 146 ms, QRS duration 105 ms, QTc 416 ms. X-rays interpreted by me (1pt min.)? @ -Chest x-ray obtained, my interpretation identifies no localized consolidations or infiltrates. CT interpreted by me (1pt min.)? @ -Not obtained U/S interpreted by me (1pt. min.)? @ -Not obtained What testing was considered but not performed? (CT, X-rays, U/S, labs)? Why? @ -None What meds were considered but not given? Why? @ -None Did you discuss the management of the patient with other professionals? @ -No Did you reconcile home meds? @ -No Was smoking cessation discussed for >3mins.? @ -No Was critical care preformed (if so, how long)? @ -No Were there social determinants of health that impacted care today? How? (Homelessness, low income, unemployed, alcoholism, drug addiction, transportation, low edu. Level, literacy, decrease access to med. care, care home, rehab)? @ -No Was there de-escalation of care discussed even if they declined? (Discuss DNR or withdrawal of care, Hospice)? @ -No What co-morbidities impacted this encounter? (DM, HTN, Smoking, COPD, CAD, Cancer, CVA, Hep., AIDS, mental health diagnosis, sleep apnea, morbid obesity)? @ -Asthma, COPD Was patient admitted / discharged? @ -Discharged. Lab work demonstrates mild leukocytosis with a white blood cell count of 10.26. She has mild hypokalemia with a potassium of 3.4. Lactic acid elevated at 3.4. Patient positive for influenza A. 40 mEq of K-Dur and 1 L of normal saline administered. DuoNeb breathing treatment and Solu-Medrol administered as well, which she did find very helpful for the breathing. Tessalon Perles administered for the coughing. Patient is in the timeframe for Tamiflu and wishes to proceed. This was prescribed as well as a 5-day course of prednisone for her associated asthma exacerbation. Tessalon Perles and Zofran prescribed as well for symptomatic management. Patient discharged home in stable condition. Case discussed with ED attending, Dr. Henderson. Return precautions reviewed in depth, the patient is instructed to return to the emergency department with any new, worsening, or concerning symptoms. Patient verbalized understanding. Undiagnosed new problem with uncertain prognosis? @ -None Drug Therapy requiring intensive monitoring for toxicity (Heparin, Nitro, Insulin, Cardizem)? @ -None Were any procedures done? @ -None Diagnosis/symptom? @ -Influenza A, dyspnea Acute, or Chronic, or Acute on Chronic? @ -Acute Uncomplicated (without systemic symptoms) or Complicated (systemic symptoms)? @ -Uncomplicated Side effects of treatment? @ -None Exacerbation, Progression, or Severe Exacerbation] @ -Not applicable Poses a threat to life or bodily function? @ -No - Lab Data Result diagrams: 01/08/25 17:45 01/08/25 17:45 Lab Results 01/08/25 01/08/25 01/08/25 Range/Units 17:45 17:45 17:45 WBC 10.26 H (4.50-10.00) 10*3/uL RBC 4.81 (4.10-5.20) 10*6/uL Hgb 15.1 H (12.0-15.0) g/dL Hct 42.5 (37.2-46.3) % MCV 88.4 (80.0-97.0) fL MCH 31.4 (27.0-32.0) pg MCHC 35.5 (32.0-37.0) g/dL Plt Count 392 (140-440) 10*3/uL MPV 9.7 (9.5-12.2) fL Immature Gran % (Auto) 0.4 % Neutrophils % 83.1 % Lymphocytes % 7.5 % Monocytes % 8.4 % Eosinophils % 0.0 % Basophils % 0.6 % Immature Gran # 0.04 (0.00-0.04) 10*3/uL Neutrophils # 8.53 H (1.80-7.70) 10*3/uL Lymphocytes # 0.77 L (0.90-5.00) 10*3/uL Monocytes # 0.86 (0.20-1.00) 10*3/uL Eosinophils # 0.00 L (0.04-0.35) 10*3/uL Basophils # 0.06 (0.00-0.10) 10*3/uL PT 10.9 (10.0-12.5) sec INR 1.0 (<1.2) APTT 24.5 (22.0-30.0) sec Sodium 140 (137-145) mmol/L Potassium 3.4 L (3.5-5.1) mmol/L Chloride 107 (98-107) mmol/L Carbon Dioxide 19 L (22-30) mmol/L Anion Gap 14 mmol/L BUN 13 (7-17) mg/dL Creatinine 0.60 (0.52-1.04) mg/dL Est GFR (CKD-EPI)AfAm >90 (>60 ml/min/1.73 sqM) Est GFR (CKD-EPI)NonAf >90 (>60 ml/min/1.73 sqM) Glucose 133 H (74-99) mg/dL Lactic Ac Sepsis Rflx Plasma Lactic Acid Milton (0.7-2.0) mmol/L Calcium 9.9 (8.4-10.2) mg/dL Magnesium 1.7 (1.6-2.3) mg/dL Total Bilirubin 0.6 (0.2-1.3) mg/dL AST 22 (14-36) U/L ALT 22 (4-34) U/L Alkaline Phosphatase 81 (38-126) U/L Troponin I (0.000-0.034) ng/mL NT-Pro-B Natriuret Pep 213 pg/mL Total Protein 7.7 (6.3-8.2) g/dL Albumin 4.7 (3.5-5.0) g/dL Influenza Type A (PCR) (Not Detectd) Influenza Type B (PCR) (Not Detectd) RSV (PCR) (Not Detectd) SARS-CoV-2 (PCR) (Not Detectd) 01/08/25 01/08/25 01/08/25 Range/Units 17:45 17:45 18:10 WBC (4.50-10.00) 10*3/uL RBC (4.10-5.20) 10*6/uL Hgb (12.0-15.0) g/dL Hct (37.2-46.3) % MCV (80.0-97.0) fL MCH (27.0-32.0) pg MCHC (32.0-37.0) g/dL Plt Count (140-440) 10*3/uL MPV (9.5-12.2) fL Immature Gran % (Auto) % Neutrophils % % Lymphocytes % % Monocytes % % Eosinophils % % Basophils % % Immature Gran # (0.00-0.04) 10*3/uL Neutrophils # (1.80-7.70) 10*3/uL Lymphocytes # (0.90-5.00) 10*3/uL Monocytes # (0.20-1.00) 10*3/uL Eosinophils # (0.04-0.35) 10*3/uL Basophils # (0.00-0.10) 10*3/uL PT (10.0-12.5) sec INR (<1.2) APTT (22.0-30.0) sec Sodium (137-145) mmol/L Potassium (3.5-5.1) mmol/L Chloride (98-107) mmol/L Carbon Dioxide (22-30) mmol/L Anion Gap mmol/L BUN (7-17) mg/dL Creatinine (0.52-1.04) mg/dL Est GFR (CKD-EPI)AfAm (>60 ml/min/1.73 sqM) Est GFR (CKD-EPI)NonAf (>60 ml/min/1.73 sqM) Glucose (74-99) mg/dL Lactic Ac Sepsis Rflx Plasma Lactic Acid Milton 3.4 H* (0.7-2.0) mmol/L Calcium (8.4-10.2) mg/dL Magnesium (1.6-2.3) mg/dL Total Bilirubin (0.2-1.3) mg/dL AST (14-36) U/L ALT (4-34) U/L Alkaline Phosphatase (38-126) U/L Troponin I <0.012 (0.000-0.034) ng/mL NT-Pro-B Natriuret Pep pg/mL Total Protein (6.3-8.2) g/dL Albumin (3.5-5.0) g/dL Influenza Type A (PCR) Detected A (Not Detectd) Influenza Type B (PCR) Not Detected (Not Detectd) RSV (PCR) Not Detected (Not Detectd) SARS-CoV-2 (PCR) Not Detected (Not Detectd) 01/08/25 Range/Units 18:15 WBC (4.50-10.00) 10*3/uL RBC (4.10-5.20) 10*6/uL Hgb (12.0-15.0) g/dL Hct (37.2-46.3) % MCV (80.0-97.0) fL MCH (27.0-32.0) pg MCHC (32.0-37.0) g/dL Plt Count (140-440) 10*3/uL MPV (9.5-12.2) fL Immature Gran % (Auto) % Neutrophils % % Lymphocytes % % Monocytes % % Eosinophils % % Basophils % % Immature Gran # (0.00-0.04) 10*3/uL Neutrophils # (1.80-7.70) 10*3/uL Lymphocytes # (0.90-5.00) 10*3/uL Monocytes # (0.20-1.00) 10*3/uL Eosinophils # (0.04-0.35) 10*3/uL Basophils # (0.00-0.10) 10*3/uL PT (10.0-12.5) sec INR (<1.2) APTT (22.0-30.0) sec Sodium (137-145) mmol/L Potassium (3.5-5.1) mmol/L Chloride (98-107) mmol/L Carbon Dioxide (22-30) mmol/L Anion Gap mmol/L BUN (7-17) mg/dL Creatinine (0.52-1.04) mg/dL Est GFR (CKD-EPI)AfAm (>60 ml/min/1.73 sqM) Est GFR (CKD-EPI)NonAf (>60 ml/min/1.73 sqM) Glucose (74-99) mg/dL Lactic Ac Sepsis Rflx Y Plasma Lactic Acid Milton (0.7-2.0) mmol/L Calcium (8.4-10.2) mg/dL Magnesium (1.6-2.3) mg/dL Total Bilirubin (0.2-1.3) mg/dL AST (14-36) U/L ALT (4-34) U/L Alkaline Phosphatase (38-126) U/L Troponin I (0.000-0.034) ng/mL NT-Pro-B Natriuret Pep pg/mL Total Protein (6.3-8.2) g/dL Albumin (3.5-5.0) g/dL Influenza Type A (PCR) (Not Detectd) Influenza Type B (PCR) (Not Detectd) RSV (PCR) (Not Detectd) SARS-CoV-2 (PCR) (Not Detectd) - Radiology Data Radiology results: report reviewed, image reviewed Disposition Clinical Impression: Influenza A, Dyspnea Disposition: HOME SELF-CARE Instructions (If sedation given, give patient instructions): Influenza (ED) Additional Instructions: Return to the emergency department with any new, worsening, or concerning symp toms. Take the prednisone daily for 5 days. Take the Tamiflu as prescribed for 5 days. Take the Tessalon Perles up to every 8 hours as needed for coughing. Take the Zofran up to every 8 hours as needed for nausea and vomiting. Continue to use your breathing treatments as needed. Follow up with your primary care provider in 1-2 days. Prescriptions: predniSONE 50 mg PO DAILY 5 Days #5 tab Oseltamivir [Tamiflu] 75 mg PO Q12HR 5 Days #10 cap Benzonatate [Tessalon Perle] 200 mg PO TID PRN #20 capsule PRN Reason: Cough Ondansetron Odt [Zofran Odt] 4 mg PO Q8HR PRN #15 tab PRN Reason: Nausea And Vomiting Is patient prescribed a controlled substance at d/c from ED?: No Referrals: Pushpa Staples MD [Primary Care Provider] - 1-2 days Time of Disposition: 19:31
[2025-01-08] MEDS: methylPREDNISolone SOD SUCCI 125 MG/2 ML VIAL IV STA (17:39)
[2025-01-08] MEDS: SODIUM CHLORIDE 0.9% 1,000 ML IV ONE ×2 (17:39→19:42)
[2025-01-08] MEDS: ONDANSETRON 4 MG/2 ML VIAL IVP STA (17:48)
[2025-01-08] MEDS: IPRATROPIUM-ALBUTEROL 3 ML NEB INHALATION STA (17:50)
[2025-01-08 17:59] LABS: Basophils # (A) 0.06 10*3/uL (0.00-0.10); Basophils % (A) 0.6 %; HCT 42.5 % (37.2-46.3); HGB 15.1 g/dL (12.0-15.0); Lymphocytes # (A) 0.77 10*3/uL (0.90-5.00); Lymphocytes % (A) 7.5 %; MCH 31.4 pg (27.0-32.0); MCHC 35.5 g/dL (32.0-37.0); MCV 88.4 fL (80.0-97.0); Mean Platelet Volume 9.7 fL (9.5-12.2); Monocytes # (A) 0.86 10*3/uL (0.20-1.00); Monocytes % (A) 8.4 %; Neutrophils # (A) 8.53 10*3/uL (1.80-7.70); Neutrophils % (A) 83.1 %; Platelet Count 392 10*3/uL (140-440); RBC 4.81 10*6/uL (4.10-5.20); RDW 14.5 % (11.5-14.5); WBC 10.26 10*3/uL (4.50-10.00)
[2025-01-08 18:09] LABS: Partial Thromboplastin Time 24.5 sec (22.0-30.0); Prothrombin Time 10.9 sec (10.0-12.5)
[2025-01-08 18:13] LABS: ALT 22 U/L (4-34); AST 22 U/L (14-36); African American GFR (CKD) >90 (>60 ml/min/1.73 sqM); Albumin 4.7 g/dL (3.5-5.0); Alkaline Phosphatase 81 U/L (38-126); Anion Gap 14 mmol/L; Blood Urea Nitrogen 13 mg/dL (7-17); Calcium 9.9 mg/dL (8.4-10.2); Carbon Dioxide 19 mmol/L (22-30); Chloride 107 mmol/L (98-107); Glucose 133 mg/dL (74-99); Magnesium 1.7 mg/dL (1.6-2.3); Non-African American GFR(CKD) >90 (>60 ml/min/1.73 sqM); Potassium 3.4 mmol/L (3.5-5.1); Sodium 140 mmol/L (137-145); Total Bilirubin 0.6 mg/dL (0.2-1.3); Total Protein 7.7 g/dL (6.3-8.2)
[2025-01-08 18:21] LABS: NT-Pro-B-Type Natriuretic Pept 213 pg/mL
[2025-01-08] MEDS: BENZONATATE 100 MG CAP PO STA (18:49)
[2025-01-08] MEDS: POTASSIUM CHLORIDE ER 20 MEQ TAB.ER PO STA (18:51)
[2025-01-08 18:53] LABS: Influenza A Detected (Not Detectd); Influenza B Not Detected (Not Detectd); RSV Not Detected (Not Detectd)
--- NOTE | 2025-01-08 19:20 | XR ---
EXAMINATION TYPE: XR chest 2V DATE OF EXAM: 01/08/2025 6:59 PM COMPARISON: None. CLINICAL INDICATION: Female, 69 years old with history of difficulty breathing, TECHNIQUE: XR chest 2V view(s) obtained. FINDINGS: The heart size is normal. The pulmonary vasculature is normal. The lungs are clear. IMPRESSION: 1. No acute pulmonary process. [facility], Workstation: [facility], 01/08/2025 7:17 PM
[2025-01-08] MEDS: SODIUM CHLORIDE 0.9% 500 ML 500 ML IV ONE (19:42)
[2025-01-08 20:18] VITALS: BP 158/78; PULSE 88; RESP 18
== END 2025-01-08 20:18 | disposition home or self-care (01) ==
LOC: EC 16:43
DX: J10.1 Influenza due to other identified influenza virus with other respiratory manifestations (principal); J44.89 Other specified chronic obstructive pulmonary disease; Z88.5 Allergy status to narcotic agent
CPT/HCPCS: 36415; 94640; 93005; 83880; 80053; 83605; 83735; 84484; 85025; 85610; 85730; 87636; 71046; 99285; 96374; 96375; 96361 ×2; J2405; J2919